=== PATIENT | male | born 1950 | race Caucasian/White ===

== ENCOUNTER → 2020-03-13 11:50 | Outpatient (CLI) | payer MEDICARE, OTHER, SELFPAY ==
--- NOTE | 2020-03-13 | DI.US.S_ITS ---
PROCEDURE: US RENAL COMPLETE INDICATIONS: KIDNEY FUNCTION VISIT TECHNIQUE: Real-time scanning was performed of the kidneys and bladder, with image documentation. COMPARISON: None. FINDINGS: Kidneys: Kidneys are normal in size. Right kidney measures 14.7 cm long; left kidney measures 15.5 cm long. Right renal cortical thickness is 1.2 cm; left renal cortical thickness is 2.4 cm. Renal cortical echotexture is normal. Moderate bilateral hydroureteronephrosis. No stones visualized. suspicious solid mass lesions. Bladder: Pre-void bladder volume is 1922 mL. Post-void residual is 1659 mL. Pre-void images demonstrate no intraluminal masses or stones. On pre-void images, bilateralbilateral ureteral jets are noted with color Doppler interrogation. (Of note, ureteral jets may not be detectable in up to 25% of cases due to insufficient differences in specific gravity between ureteral and bladder urine). Multiple bladder wall trabeculations. Miscellaneous: No free pelvic fluid. 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 Dictated by: Romulo Lenz [facility] Interpreted: Misha Haile MD on 03/13/2020 at 13:10 Approved by: Misha Haile M.D. on 03/13/2020 at 14:46
== END ==
PROVIDERS: PCP Internal Medicine; Referring Provider Internal Medicine; Visit Provider Internal Medicine
DX: R79.89 Other specified abnormal findings of blood chemistry (principal); N13.30 Unspecified hydronephrosis; N32.89 Other specified disorders of bladder; N40.1 Benign prostatic hyperplasia with lower urinary tract symptoms; R53.83 Other fatigue
CPT/HCPCS: 76770